=== PATIENT | male | born 1975 | race African-American/Black ===

== ENCOUNTER 2021-02-16 10:20 | Emergency (ER) | payer MEDICAID, MEDICARE ==
[~2021-02-16] VITALS: Ht 180.3 cm; Wt 93.0 kg
[2021-02-16] MEDS ORDERED: IBUPROFEN 600MG TABLET PO ONE (10:30)
[2021-02-16 12:51] VITALS: BP 139/74
== END 2021-02-16 15:03 | disposition home or self-care (01) ==
LOC: ER 10:44
DX: M79.18 Myalgia, other site (principal); T43.621A Poisoning by amphetamines, accidental (unintentional), initial encounter; Y92.89 Other specified places as the place of occurrence of the external cause; F32.9 Major depressive disorder, single episode, unspecified; E11.9 Type 2 diabetes mellitus without complications; F20.9 Schizophrenia, unspecified
CPT/HCPCS: 99283

== ENCOUNTER 2023-12-21 20:10 | Emergency (ER) | payer MEDICAID ==
[~2023-12-21] VITALS: Ht 177.8 cm; Wt 104.0 kg
[2023-12-21 20:13] VITALS: O2SAT 98
[2023-12-21] MEDS: IBUPROFEN 600MG TABLET PO ONE (21:15)
[2023-12-21 23:22] LABS: CHLORIDE 103 mEq/L (98-107); POTASSIUM 3.1 mEq/L (3.5-5.1); SODIUM 135 mEq/L (136-145)
[2023-12-21 23:23] LABS: CARBON DIOXIDE 25 mEq/L (21-32)
[2023-12-21 23:28] LABS: GLUCOSE 172 mg/dL (70-105); UREA NITROGEN BLOOD 13 mg/dL (9-23)
[2023-12-21 23:30] LABS: ALANINE AMINOTRANSFERASE 35 IU/L (10-49); ALBUMIN 4.9 g/dL (3.2-4.8); ASPARTATE AMINOTRANSFERASE 50 IU/L (<34); BILIRUBIN TOTAL 0.8 mg/dL (0.1-1.0); PROTEIN TOTAL 9.1 g/dL (6.0-8.3)
[2023-12-21 23:43] LABS: BASOPHILS % 0.3 % (0.0-2.0); EOSINOPHILS % 1.9 % (0.0-5.0); HEMATOCRIT. 35.9 % (42.0-52.0); HEMOGLOBIN. 11.1 g/dL (14.0-18.0); LYMPHOCYTES % 40.3 % (20.0-50.0); MEAN CORPUSCULAR HEMOGLOBIN 21.4 pg (28.0-32.0); MEAN CORPUSCULAR HGB CONC 30.9 g/dL (31.0-37.0); MEAN CORPUSCULAR VOLUME 69.1 fL (80.0-94.0); MEAN PLATELET VOLUME 7.4 fl (7.4-10.4); MONOCYTES % 3.8 % (2.0-8.0); NEUTROPHILS % 53.7 % (40.0-76.0); PLATELET 287 x1000/uL (130-400); RED CELL DISTRIBUTION WIDTH 19.4 % (11.6-14.6); WHITE BLOOD COUNT 8.2 x1000/uL (4.5-11.0)
[2023-12-21 23:46] LABS: ADD RBC MORPHOLOGY YES; DIFFERENTIAL COMMENT 1
[2023-12-22 00:03] LABS: OVALOCYTES 1+; PLATELET ESTIMATE NORMAL; TEAR DROP CELLS 1+
[2023-12-22 00:04] LABS: MICROCYTOSIS 1+
[2023-12-22] MEDS ORDERED: IBUP-2029 MT (00:08)
[2023-12-22] MEDS ORDERED: SULF1TAB48 MT (00:08)
[2023-12-22] MEDS: POTASSIUM CHLORIDE 20MEQ/PACKET PO ONE (00:21)
[2023-12-22 00:40] VITALS: BP 151/93; PULSE 75; RESP 16
== END 2023-12-22 00:40 | disposition home or self-care (01) ==
LOC: ER 21:10
DX: M79.671 Pain in right foot (principal); M79.672 Pain in left foot; E11.9 Type 2 diabetes mellitus without complications; I10 Essential (primary) hypertension; F15.10 Other stimulant abuse, uncomplicated
CPT/HCPCS: 36415; 73630; 80053; 83605; 85025; 99284

== ENCOUNTER 2023-12-22 03:04 | Emergency (ER) | payer MEDICAID ==
[~2023-12-22] VITALS: Ht 190.5 cm; Wt 111.0 kg
[~2023-12-22 03:04] MED LIST: IBUP-2029 MT; SULF1TAB48 MT
[2023-12-22 03:17] VITALS: BP 138/87; PULSE 74; RESP 16; TEMP 98.5; O2SAT 99
== END 2023-12-22 03:40 | disposition left against medical advice (07) ==
LOC: ER 03:04
DX: M79.671 Pain in right foot (principal); Z53.21 Procedure and treatment not carried out due to patient leaving prior to being seen by health care provider

== ENCOUNTER 2024-12-19 05:00 | Emergency (ER) | payer MEDICAID ==
[~2024-12-19] VITALS: Ht 190.5 cm; Wt 118.0 kg
[2024-12-19 05:07] VITALS: O2SAT 100
[2024-12-19 05:18] VITALS: BP 172/87; PULSE 81; RESP 20; TEMP 36.8; O2SAT 100
[2024-12-19] MEDS ORDERED: KETOROLAC 30MG/ML VIAL IM ONE (06:00)
== END 2024-12-19 06:23 | disposition left against medical advice (07) ==
LOC: ER 05:00
DX: G89.29 Other chronic pain (principal); M54.50 Low back pain, unspecified; E11.9 Type 2 diabetes mellitus without complications; I10 Essential (primary) hypertension; F20.9 Schizophrenia, unspecified; F15.90 Other stimulant use, unspecified, uncomplicated; Z79.899 Other long term (current) drug therapy
CPT/HCPCS: 99281